=== PATIENT | male | born 1960 | race Caucasian/White ===

== ENCOUNTER 2022-01-24 07:21 | Day surgery (SDC) | payer BC ==
[~2022-01-24] VITALS: Ht 188 cm; Wt 102.0 kg
[2022-01-24] MEDS ORDERED: normal saline 1000ml 1,000 ML IV PRN (08:00)
[2022-01-24 08:10] VITALS: BP 133/82
[2022-01-24 08:45] LABS: BASOPHILS % (AUTO) 0.5 % (0-1); EOSINOPHILS # (AUTO) 0.1 X10'3 (0-0.9); EOSINOPHILS % (AUTO) 1.7 % (0-6); HEMATOCRIT 50.4 % (42.0-52.0); HEMOGLOBIN 17.3 g/dl (14.0-17.9); LYMPHOCYTES # (AUTO) 0.9 X10'3 (1.1-4.8); LYMPHOCYTES % (AUTO) 11.7 % (21-51); MEAN CORPUSCULAR HEMOGLOBIN 30.2 PG (27.0-31.0); MEAN CORPUSCULAR HGB CONC 34.2 g/dL (33.0-36.5); MEAN CORPUSCULAR VOLUME 88.3 FL (78-98); MEAN PLATELET VOLUME 8.3 FL (7.4-10.4); MONOCYTES % (AUTO) 12.5 % (2-12); NEUTROPHILS # (AUTO) 5.9 X10'3 (1.8-7.7); NEUTROPHILS % (AUTO) 73.6 % (42-75); PLATELET COUNT 274 X10'3 (140-440); RED BLOOD COUNT 5.71 X10'6 (4.70-6.10); RED CELL DISTRIBUTION WIDTH 13.2 % (11.5-14.5)
[2022-01-24 09:00] LABS: ALBUMIN 4.3 G/DL (3.4-5.0); BLOOD UREA NITROGEN 22 MG/DL (7-18); BUN/CREATININE RATIO 17.3 (5.4-32.0); CALCIUM 9.2 MG/DL (8.5-10.1); CHLORIDE 99 MMOL/L (99-107); CREATININE 1.27 MG/DL (0.60-1.10); GLUCOSE 87 MG/DL (70-104); SODIUM 137 MMOL/L (135-145); eGFR 58 ML/MIN
[2022-01-24 09:07] LABS: ANION GAP 12 (8-16)
[2022-01-24] MEDS ORDERED: heparin sodium, porcine/PF 100unit/ml 5ML syringe ONE (10:07)
[2022-01-24 11:09] VITALS: BP 135/72
[2022-01-24 11:15] VITALS: BP 143/71
== END 2022-01-24 11:45 | disposition home or self-care (01) ==
LOC: SSTAY O 07:21
PROVIDERS: ATTEND Preventive Medicine Aerospace Medicine
DX: C43.4 Malignant melanoma of scalp and neck (principal)
CPT/HCPCS: 36415; 36561; 76937; 77001; 80048; 85025; C1769; C1788; C1894; J1642